=== PATIENT | male | born 1955 | race Caucasian/White ===

== ENCOUNTER 2020-03-31 14:25 | Emergency (ER) | payer SELFPAY ==
[2020-03-31 14:32] VITALS: BMI 26.6
[2020-03-31] MEDS ORDERED: SODIUM CHLORIDE 1,000 ML IV SCH (14:45)
[2020-03-31 15:44] LABS: BASO % 0.7 % (0-2.0); EOS % 0.1 % (0-4.5); HEMATOCRIT 41.8 % (35.4-49); LYMPH % 22.8 % (8-40); MCH 30.1 pg (25.7-33.7); MCHC 33.6 g/dl (32.0-35.9); MEAN CELL VOLUME 89.6 fl (80-96); MEAN PLT VOLUME 8.4 fl (7.5-11.1); MONO % 9.3 % (3.8-10.2); NEUT % 67.1 % (42.8-82.8); PLATELET COUNT 314 K/MM3 (134-434); RBC 4.66 M/mm3 (4.00-5.60); RDW 15.6 % (11.9-15.9); WHITE BLOOD COUNT 8.5 K/mm3 (4.0-10.0)
[2020-03-31 15:53] LABS: INR 0.95 (0.83-1.09); PROTHROMBIN TIME (PATIENT) 11.7 SEC (9.7-13.0)
[2020-03-31 15:56] LABS: ACTIVATED PTT 30.3 SECONDS (25.2-36.5)
[2020-03-31 16:04] LABS: PH,URINE 6.5 (5.0-8.0); URINE APPEARANCE CLEAR; URINE BILIRUBIN NEGATIVE (NEGATIVE); URINE COLOR YELLOW; URINE GLUCOSE (UA) NEGATIVE (NEGATIVE); URINE KETONE NEGATIVE (NEGATIVE); URINE LEUK ESTERASE NEGATIVE (NEGATIVE); URINE NITRITE NEGATIVE (NEGATIVE); URINE PROTEIN NEGATIVE (NEGATIVE)
[2020-03-31 16:09] LABS: CHLORIDE 106 mmol/L (98-107); POTASSIUM 4.8 mmol/L (3.5-5.1); SODIUM 139 mmol/L (136-145)
[2020-03-31 16:11] LABS: CALCIUM 9.5 mg/dL (8.5-10.1)
[2020-03-31 16:12] LABS: ALBUMIN 3.8 g/dl (3.4-5.0); ANION GAP 2 MMOL/L (8-16); BLOOD UREA NITROGEN 17.6 mg/dL (7-18); CO2 30 mmol/L (21-32); GLUCOSE,RANDOM 96 mg/dL (74-106)
[2020-03-31 16:15] LABS: CHOLESTEROL 177 mg/dL (50-200); CREATININE 0.9 mg/dL (0.55-1.3); SGOT/AST 37 U/L (15-37); SGPT/ALT 146 U/L (13-61)
[2020-03-31 16:16] LABS: BILIRUBIN,TOTAL 0.7 mg/dL (0.2-1); LDL CHOLESTEROL (ONLY SJRH) 109 mg/dL (5-100); TRIGLYCERIDES 82 mg/dL (0-150)
[2020-03-31 16:17] LABS: HDL CHOLESTEROL 56 mg/dL (40-60); TOT PROT 8.4 g/dl (6.4-8.2)
[2020-03-31 16:18] LABS: ALK PHOS 257 U/L (45-117)
[2020-03-31 17:31] LABS: URINE AMPHETAMINES NEGATIVE ng/ml (CUTOFF=500); URINE BARBITURATES NEGATIVE ng/ml (CUTOFF=200); URINE BENZODIAZEPINES NEGATIVE ng/ml (CUTOFF=200)
[2020-03-31 17:32] LABS: METHADONE, UR NEGATIVE ng/ml (CUTOFF=300); PHENCYCLIDINE,URINE NEGATIVE ng/ml (CUTOFF=25)
[2020-03-31 17:36] LABS: COCAINE, UR POSITIVE ng/ml (CUTOFF=300); OPIATES, URI POSITIVE ng/ml (CUTOFF=300)
[2020-03-31 18:06] VITALS: TEMP 97.6
[2020-03-31 23:26] VITALS: BP 148/97; PULSE 81
== END 2020-04-01 02:14 | disposition home or self-care (01) ==
LOC: JER 14:25 → JERBED 20:54 → UNDOADMIN 20:54 → JER 04-01 02:14
DX: F19.10 Other psychoactive substance abuse, uncomplicated (principal); R47.01 Aphasia; R40.0 Somnolence
CPT/HCPCS: 36415; 70450-TC; 71045-TC-FY; 80053; 80061; 80307; 81003; 82550; 82962; 83605; 83721; 84484; 85025; 85610; 85730; 87040; 87086; 93005; 93010; 99285-25